=== PATIENT | male | born 1990 | race Caucasian/White ===

== ENCOUNTER 2019-04-13 12:35 | Emergency (ER) | payer OTHER ==
[~2019-04-13] VITALS: Ht 172 cm; Wt 75.0 kg
[2019-04-13] MEDS ORDERED: diphenhydrAMINE 50 MG/ML INJ (BENADRYL) IVP ONE (12:45)
--- NOTE | 2019-04-13 12:46 | ED General ---
General Chief Complaint: Allergic Reaction Stated Complaint: ALLERGIC REACTION Source of Information: Patient Exam Limitations: No Limitations History of Present Illness Date Seen by Provider: Apr 13, 2019 Time Seen by Provider: 12:42 Initial Comments To ER with reports of allergic reaction. He reports diffuse itching and sensation of his throat swelling. This began about 1.5 weeks ago, was attributed to the Paxil he had been on for many years, they thought maybe there was a new dye in the fill computed to the reaction. At that time the Paxil was discontinued, Prozac was started in its place and he was given steroids. She initially had hives and those resolved over the course of the past week. He took his last prednisone today, now feels his heart racing, sweating, sensation of throat tightness, diffuse itching but no hives. Timing/Duration: 1 Week Severity: Moderate Allergies and Home Medications Allergies Coded Allergies: paroxetine (Verified Allergy, Unknown, 04/13/19) Patient Home Medication List Home Medication List Reviewed: Yes Review of Systems Review of Systems Constitutional: see HPI, diaphoresis EENTM: see HPI Respiratory: no symptoms reported Cardiovascular: no symptoms reported Genitourinary: no symptoms reported Musculoskeletal: no symptoms reported Skin: see HPI, pruritus Psychiatric/Neurological: No Symptoms Reported Past Ngjumis-Yaaeqt-Eginru Hx Patient Social History Recent Foreign Travel: No Contact w/Someone Who Travel: No Physical Exam Vital Signs Vital Signs - First Documented 04/13/19 12:40 Temp 36.7 Pulse 92 Resp 18 B/P (MAP) 116/68 (84) Pulse Ox 93 O2 Delivery Room Air Capillary Refill : Height, Weight, BMI Height: '" Weight: lbs. oz. kg; BMI Method:Stated General Appearance: No Apparent Distress, WD/WN, Other (tachycardic at 105, anxious appearing.) Eyes: Bilateral Eye Normal Inspection, Bilateral Eye PERRL, Bilateral Eye EOMI HEENT: PERRL/EOMI, TMs Normal, Other (no visible swelling of the lips tongue or oropharynx) Neck: Full Range of Motion, Normal Inspection Respiratory: No Accessory Muscle Use, No Respiratory Distress Cardiovascular: Regular Rate, Rhythm, Normal Peripheral Pulses Gastrointestinal: Non Tender, Soft Extremity: Normal Capillary Refill, Normal Inspection Neurologic/Psychiatric: Alert, Oriented x3 Skin: Normal Color, Warm/Dry, Other (there are no hives, there is no excoriation of the skin from scratching, there is no erythema of the skin.) Progress/Results/Core Measures Suspected Sepsis SIRS Temperature: Pulse: Respiratory Rate: Laboratory Tests 04/13/19 12:55: White Blood Count 15.5H Blood Pressure / Mean: Laboratory Tests 04/13/19 12:55: Creatinine 1.10, Platelet Count 374, Total Bilirubin 0.7 Results/Orders Lab Results Laboratory Tests Test 04/13/19 12:55 Range/Units White Blood Count 15.5 H 4.3-11.0 10^3/uL Red Blood Count 5.15 4.35-5.85 10^6/uL Hemoglobin 16.3 13.3-17.7 G/DL Hematocrit 47 40-54 % Mean Corpuscular Volume 90 80-99 FL Mean Corpuscular Hemoglobin 32 25-34 PG Mean Corpuscular Hemoglobin Concent 35 32-36 G/DL Red Cell Distribution Width 13.7 10.0-14.5 % Platelet Count 374 130-400 10^3/uL Mean Platelet Volume 9.2 7.4-10.4 FL Neutrophils (%) (Auto) 79 H 42-75 % Lymphocytes (%) (Auto) 15 12-44 % Monocytes (%) (Auto) 5 0-12 % Eosinophils (%) (Auto) 0 0-10 % Basophils (%) (Auto) 0 0-10 % Neutrophils # (Auto) 12.3 H 1.8-7.8 X 10^3 Lymphocytes # (Auto) 2.4 1.0-4.0 X 10^3 Monocytes # (Auto) 0.7 0.0-1.0 X 10^3 Eosinophils # (Auto) 0.0 0.0-0.3 10^3/uL Basophils # (Auto) 0.0 0.0-0.1 10^3/uL Neutrophils % (Manual) 73 % Lymphocytes % (Manual) 21 % Monocytes % (Manual) 5 % Band Neutrophils 1 % Blood Morphology Comment NORMAL Sodium Level 137 135-145 MMOL/L Potassium Level 3.2 L 3.6-5.0 MMOL/L Chloride Level 100 98-107 MMOL/L Carbon Dioxide Level 21 21-32 MMOL/L Anion Gap 16 H 5-14 MMOL/L Blood Urea Nitrogen 17 7-18 MG/DL Creatinine 1.10 0.60-1.30 MG/DL Estimat Glomerular Filtration Rate > 60 BUN/Creatinine Ratio 15 Glucose Level 207 H 70-105 MG/DL Calcium Level 9.6 8.5-10.1 MG/DL Corrected Calcium 9.4 8.5-10.1 MG/DL Total Bilirubin 0.7 0.1-1.0 MG/DL Aspartate Amino Transf (AST/SGOT) 29 5-34 U/L Alanine Aminotransferase (ALT/SGPT) 26 0-55 U/L Alkaline Phosphatase 62 40-136 U/L Total Protein 6.8 6.4-8.2 GM/DL Albumin 4.2 3.2-4.5 GM/DL My Orders Orders - NOLVIA BEARDEN APRN Ed Iv/Invasive Line Start (04/13/19 12:41) Diphenhydramine Injection (Benadryl Inje (04/13/19 12:45) Cbc With Automated Diff (04/13/19 13:12) Comprehensive Metabolic Panel (04/13/19 13:12) Manual Differential (04/13/19 12:55) Lorazepam Injection (Ativan Injection) (04/13/19 13:45) Medications Given in ED Current Medications Medications Dose Ordered Sig/Dariel Route Start Time Stop Time Status Last Admin Dose Admin Diphenhydramine HCl 50 mg ONCE ONCE IVP 04/13/19 12:45 04/13/19 12:46 DC 04/13/19 12:47 50 MG Lorazepam 0.5 mg ONCE PRN IVP 04/13/19 13:45 04/13/19 13:52 0.5 MG Vital Signs/I&O 04/13/19 12:40 Temp 36.7 Pulse 92 Resp 18 B/P (MAP) 116/68 (84) Pulse Ox 93 O2 Delivery Room Air Capillary Refill : Departure Communication (Admissions) I'm not entirely convinced this is an allergic reaction at this point, suspect this may be more related to the sudden cessation of the Paxil/initiation of Prozac. does state that he's had some obvious swelling of his lips intermittently and hives intermittently. She states he eats a lot of meat and has been bitten by several ticks this year, that would be a possibility for alpha-gal allergy to have developed is possible. He otherwise takes no medications. Impression Primary Impression: Pruritus Additional Impression: medication discontinuation symptoms Disposition: HOME, SELF-CARE Condition: Stable Departure-Patient Inst. Decision time for Depature: 14:12 Referrals: NO,LOCAL PHYSICIAN (PCP/Family) Primary Care Physician Patient Instructions: NO INSTRUCTIONS GIVEN Add. Discharge Instructions: . Benadryl every 4-6 hours as needed 2. Steroids as directed 3. All discharge instructions reviewed with patient and/or family. Voiced understanding. Scripts Methylprednisolone (Medrol) 4 Mg Tab.ds.pk 4 MG PO UD for 6 Days, #21 PKG PER DOSE PACK INSTRUCTIONS Prov: NOLVIA BEARDEN APRN 04/13/19 NOLVIA BEARDEN APRN Apr 13, 2019 12:46
[2019-04-13 13:19] LABS: BASOPHILS % (AUTO) 0 % (0-10); EOSINOPHILS % (AUTO) 0 % (0-10); HEMATOCRIT 47 % (40-54); HEMOGLOBIN 16.3 G/DL (13.3-17.7); LYMPHOCYTES # (AUTO) 2.4 X 10^3 (1.0-4.0); LYMPHOCYTES % (AUTO) 15 % (12-44); MEAN CORPUSCULAR HEMOGLOBIN 32 PG (25-34); MEAN CORPUSCULAR HGB CONC 35 G/DL (32-36); MEAN CORPUSCULAR VOLUME 90 FL (80-99); MEAN PLATELET VOLUME 9.2 FL (7.4-10.4); MONOCYTES # (AUTO) 0.7 X 10^3 (0.0-1.0); MONOCYTES % (AUTO) 5 % (0-12); NEUTROPHILS # (AUTO) 12.3 X 10^3 (1.8-7.8); NEUTROPHILS % (AUTO) 79 % (42-75); PLATELET COUNT 374 10^3/uL (130-400); RED CELL DISTRIBUTION WIDTH 13.7 % (10.0-14.5); WHITE BLOOD COUNT 15.5 10^3/uL (4.3-11.0)
[2019-04-13 13:33] LABS: ALANINE AMINOTRANSFERASE 26 U/L (0-55); ALBUMIN 4.2 GM/DL (3.2-4.5); ALKALINE PHOSPHATASE 62 U/L (40-136); BILIRUBIN,TOTAL 0.7 MG/DL (0.1-1.0); BUN/CREATININE RATIO 15; CALCIUM 9.6 MG/DL (8.5-10.1); CARBON DIOXIDE 21 MMOL/L (21-32); CHLORIDE 100 MMOL/L (98-107); GFR ESTIMATED > 60; GLUCOSE 207 MG/DL (70-105); POTASSIUM 3.2 MMOL/L (3.6-5.0); SODIUM 137 MMOL/L (135-145); TOTAL PROTEIN 6.8 GM/DL (6.4-8.2)
[2019-04-13] MEDS ORDERED: LORazepam INJ 2 MG/ML (ATIVAN) VIAL IVP PRN (13:45)
--- NOTE | 2019-04-13 13:50 | NUR ---
pt taken off of oxygen at this time and has maintained an O2 level of 93+%
--- NOTE | 2019-04-13 13:55 | NUR ---
pt placed on 2L per NC at this time d/t oxygen levels dropping below 90%.
--- NOTE | 2019-04-13 14:30 | NUR ---
pt placed on 7L with facemask d/t consistent O2 levels below 90%.
[2019-04-13 14:50] LABS: BAND NEUTROPHILS 1 %; LYMPHOCYTES % (MANUAL) 21 %; MONOCYTES % (MANUAL) 5 %; NEUTROPHILS % (MANUAL) 73 %; RBC MORPH NORMAL
[2019-04-13] MEDS ORDERED: METH4TAB PO (15:59)
[2019-04-13 16:15] VITALS: BP 127/75
== END 2019-04-13 16:17 | disposition home or self-care (01) ==
LOC: EDUNIT# 12:35 → ER 12:36
DX: L29.9 Pruritus, unspecified (principal); Z91.14 Patient's other noncompliance with medication regimen; Z88.8 Allergy status to other drugs, medicaments and biological substances
CPT/HCPCS: 36415; 80053; 85007; 85027

== ENCOUNTER 2021-10-17 23:42 | Emergency (ER) | payer OTHER ==
[~2021-10-17 23:42] MED LIST: METH4TAB PO
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
[2021-10-18 00:06] LABS: BASOPHILS # (AUTO) 0.1 10^3/uL (0.0-0.1); BASOPHILS % (AUTO) 1 % (0-10); EOSINOPHILS # (AUTO) 0.2 10^3/uL (0.0-0.3); EOSINOPHILS % (AUTO) 3 % (0-10); HEMATOCRIT 44 % (40-54); HEMOGLOBIN 15.1 g/dL (13.3-17.7); LYMPHOCYTES # (AUTO) 4.2 10^3/uL (1.0-4.0); LYMPHOCYTES % (AUTO) 43 % (12-44); MEAN CORPUSCULAR HEMOGLOBIN 31 pg (25-34); MEAN CORPUSCULAR HGB CONC 35 g/dL (32-36); MEAN CORPUSCULAR VOLUME 91 fL (80-99); MEAN PLATELET VOLUME 9.7 fL (9.0-12.2); MONOCYTES # (AUTO) 0.6 10^3/uL (0.0-1.0); MONOCYTES % (AUTO) 6 % (0-12); NEUTROPHILS # (AUTO) 4.5 10^3/uL (1.8-7.8); NEUTROPHILS % (AUTO) 47 % (42-75); PLATELET COUNT 288 10^3/uL (130-400); WHITE BLOOD COUNT 9.6 10^3/uL (4.3-11.0)
[2021-10-18 00:20] LABS: ALBUMIN 4.5 GM/DL (3.2-4.5); CHLORIDE 104 MMOL/L (98-107); SODIUM 137 MMOL/L (135-145)
[2021-10-18 00:21] LABS: CALCIUM 9.5 MG/DL (8.5-10.1)
[2021-10-18 00:22] LABS: GLUCOSE 149 MG/DL (70-105)
[2021-10-18 00:23] LABS: CARBON DIOXIDE 19 MMOL/L (21-32)
[2021-10-18 00:24] LABS: BILIRUBIN,TOTAL 0.6 MG/DL (0.1-1.0)
[2021-10-18 00:26] LABS: ALKALINE PHOSPHATASE 76 U/L (40-136); CREATININE SERUM 0.92 MG/DL (0.60-1.30); GFR ESTIMATED 115
[2021-10-18 00:27] LABS: BUN/CREATININE RATIO 10
[2021-10-18 00:28] LABS: MAGNESIUM 1.9 MG/DL (1.6-2.4)
[2021-10-18 00:29] LABS: ALANINE AMINOTRANSFERASE 18 U/L (0-55)
[2021-10-18 00:44] LABS: BILIRUBIN,URINE NEGATIVE (NEGATIVE); CLARITY,URINE CLEAR; COLOR,URINE YELLOW; GLUCOSE, URINE (UA) NEGATIVE (NEGATIVE); KETONES,URINE NEGATIVE (NEGATIVE); LEUKOCYTE ESTERASE ,URINE NEGATIVE (NEGATIVE); NITRITE,URINE NEGATIVE (NEGATIVE); PROTEIN,URINE NEGATIVE (NEGATIVE)
[2021-10-18 00:49] LABS: TSH (THYROID ANALYZER) 5.11 UIU/ML (0.35-4.94)
[2021-10-18 00:52] LABS: BACTERIA,URINE NEGATIVE /HPF; SQUAMOUS EPITHELIAL CELL,UR RARE /HPF
[2021-10-18 01:00] LABS: AMPHETAMINE SCREEN, URINE NEGATIVE (NEGATIVE); BARBITURATE SCREEN URINE NEGATIVE (NEGATIVE); BENZODIAZEPINES SCREEN URINE NEGATIVE (NEGATIVE); CANNABINOID SCREEN, URINE POSITIVE (NEGATIVE); COCAINE SCREEN URINE NEGATIVE (NEGATIVE); METHADONE STAT NEGATIVE (NEGATIVE); METHAMPHETAMINE SCREEN URINE S NEGATIVE (NEGATIVE); OPIATE SCREEN URINE NEGATIVE (NEGATIVE); OXYCODONE STAT NEGATIVE (NEGATIVE); PROPOXYPHENE STAT NEGATIVE (NEGATIVE); TRICYCLIC ANTIDEPRESSANTS SCRE NEGATIVE (NEGATIVE)
[2021-10-18] MEDS ORDERED: KCL 10 MEQ TAB (MICRO K) PO ONE ×2 (01:15→01:20)
[2021-10-18 01:31] VITALS: BP 117/72
--- NOTE | 2021-10-18 05:40 | Diagnostic Imaging Report ---
INDICATION: PALPITATIONS COMPARISON: 10/17/2010 FINDINGS: Single frontal view of the chest demonstrates normal heart size and pulmonary vascularity. The lungs are well aerated and clear. No large pleural effusion or pneumothorax is seen. The visualized osseous structures show no acute abnormalities. IMPRESSION: 1. No acute cardiopulmonary process. Dictated by: Dictated on workstation # [id number]
== END 2021-10-18 01:34 | disposition home or self-care (01) ==
LOC: EDUNIT# 23:42 → ER 23:44
DX: R00.2 Palpitations (principal); E87.6 Hypokalemia; F17.210 Nicotine dependence, cigarettes, uncomplicated; Z20.822 Contact with and (suspected) exposure to COVID-19
CPT/HCPCS: 36415; 71045; 80053; 80306; 80320; 81000; 83735; 83880; 84439; 84443; 84484; 85025; 85379; 87636; 93005; 93041

== ENCOUNTER 2022-01-13 14:38 | Emergency (ER) | payer OTHER ==
[2022-01-13] MEDS ORDERED: fentaNYL INJ 100 MCG/2 ML AMP IVP STA ×2 (14:52→15:08)
[2022-01-13] MEDS ORDERED: NS IV 1000 ML 1,000 ML IV STA (14:53)
[2022-01-13] MEDS ORDERED: TETANUS,DIPTH,PERTUSS P/F (BOOSTRIX) 0.5 ML VIAL IM ONE (15:00)
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
[2022-01-13 15:10] LABS: BASOPHILS % (AUTO) 0 % (0-10); EOSINOPHILS # (AUTO) 0.1 10^3/uL (0.0-0.3); EOSINOPHILS % (AUTO) 1 % (0-10); HEMATOCRIT 47 % (40-54); LYMPHOCYTES # (AUTO) 2.1 10^3/uL (1.0-4.0); LYMPHOCYTES % (AUTO) 18 % (12-44); MEAN CORPUSCULAR HEMOGLOBIN 32 pg (25-34); MEAN CORPUSCULAR HGB CONC 34 g/dL (32-36); MEAN CORPUSCULAR VOLUME 93 fL (80-99); MEAN PLATELET VOLUME 9.3 fL (9.0-12.2); MONOCYTES # (AUTO) 0.6 10^3/uL (0.0-1.0); MONOCYTES % (AUTO) 5 % (0-12); NEUTROPHILS # (AUTO) 8.8 10^3/uL (1.8-7.8); NEUTROPHILS % (AUTO) 76 % (42-75); PLATELET COUNT 354 10^3/uL (130-400); WHITE BLOOD COUNT 11.6 10^3/uL (4.3-11.0)
[2022-01-13] MEDS ORDERED: FLUORESCEIN (FLUOR-I-STRIPS) 1 MG STRP OP ONE (15:15)
[2022-01-13] MEDS ORDERED: TETRACAINE 0.5% OPHTH SOLN 4 ML BTL (SINGLE DOSE ONLY) OP ONE (15:15)
[2022-01-13 15:19] LABS: ALBUMIN 4.8 GM/DL (3.2-4.5)
[2022-01-13 15:20] LABS: CHLORIDE 104 MMOL/L (98-107); SODIUM 140 MMOL/L (135-145)
[2022-01-13 15:21] LABS: CALCIUM 9.4 MG/DL (8.5-10.1)
[2022-01-13 15:22] LABS: GLUCOSE 111 MG/DL (70-105); TOTAL PROTEIN 7.8 GM/DL (6.4-8.2)
[2022-01-13 15:23] LABS: CARBON DIOXIDE 22 MMOL/L (21-32)
[2022-01-13 15:24] LABS: BILIRUBIN,TOTAL 0.4 MG/DL (0.1-1.0)
[2022-01-13 15:25] LABS: ALKALINE PHOSPHATASE 72 U/L (40-136)
[2022-01-13 15:26] LABS: CREATININE SERUM 0.87 MG/DL (0.60-1.30); GFR ESTIMATED 119
[2022-01-13 15:27] LABS: BUN/CREATININE RATIO 7
[2022-01-13 15:29] LABS: ALANINE AMINOTRANSFERASE 22 U/L (0-55)
[2022-01-13] MEDS ORDERED: ACHD5005 PO (16:29)
[2022-01-13 16:50] VITALS: BP 123/81
== END 2022-01-13 16:52 | disposition home or self-care (01) ==
LOC: EDUNIT# 14:38 → ER 14:40
DX: T20.29XA Burn of second degree of multiple sites of head, face, and neck, initial encounter (principal); T21.21XA Burn of second degree of chest wall, initial encounter; T23.271A Burn of second degree of right wrist, initial encounter; W38.XXXA Explosion and rupture of other specified pressurized devices, initial encounter; X12.XXXA Contact with other hot fluids, initial encounter
CPT/HCPCS: 36415; 80053; 85025; 90715

== ENCOUNTER 2022-08-30 13:04 | Emergency (ER) | payer OTHER ==
[~2022-08-30] VITALS: Ht 173 cm; Wt 80.0 kg
[~2022-08-30 13:04] MED LIST changes: +ACHD5005 PO
--- NOTE | 2022-08-30 13:31 | ED Cough/URI ---
General Chief Complaint: COVID19 Suspect/Confirmed Stated Complaint: COVID TEST | CHEST CONGESTION Nursing Triage Note: PT AMB TO ED BY POV WITH C/O COUGH, CONGESTION, ACHINESS, AND WEAKNESS X 4-5 DAYS. DENIES BEING SOB, BUT REPORTS HE FEELS LIKE HE CAN'T TAKE A FULL BREATH. HAD SOME VOMITING YESTERDAY. Source: patient Exam Limitations: no limitations History of Present Illness Date Seen by Provider: Aug 30, 2022 Time Seen by Provider: 13:06 Initial Comments 32-year-old male presents to the ER with complaints of URI symptoms for the last 4 to 5 days. Reports runny nose, chest congestion, muscle aches, cough with greenish colored phlegm, some shortness of air with exertion. Reports couple episodes of vomiting yesterday, denies nausea now. Denies fevers/chills, chest pain, abdominal pain, diarrhea. States past medical history includes PTSD, takes trazodone and another medication that he did not know the name. Allergies and Home Medications Allergies Coded Allergies: No Known Drug Allergies (Unverified , 01/13/22) Patient Home Medication List Home Medication List Reviewed: Yes Hydrocodone/Acetaminophen (Hydrocodone-Acetamin 5-325 mg) 5 Mg-325 Mg Tablet, 1 TAB PO Q4H PRN for PAIN-MODERATE (5-7) Prescribed by: PRIMITIVO SCHAFFER on 01/13/22 1629 Methylprednisolone (Medrol) 4 Mg Tab.ds.pk, 4 MG PO UD Prescribed by: NOLVIA BEARDEN on 04/13/19 1559 Review of Systems Review of Systems Constitutional: see HPI Past Qtyoltk-Ypgqlm-Aujcul Hx Patient Social History Tobacco Use?: Yes Tobacco type used: Cigarettes Smoking Status: Current Everyday Smoker Use of E-Cig and/or Vaping dev: No Substance use?: Yes Substance type: Marijuana Substance frequency: Daily Alcohol Use?: No Pt feels they are or have been: No Immunizations Up To Date Influenza Vaccine Up-to-Date: No; Not Current Seasonal Allergies Seasonal Allergies: No Past Medical History Surgery/Hospitalization HX: PTSD Surgeries: No Respiratory: No Cardiac: Yes Palpitations Neurological: No Genitourinary: No Gastrointestinal: No Musculoskeletal: No Endocrine: No HEENT: No Cancer: No Psychosocial: Yes (HUNG HIMSELF IN 2019. DOES NOT TAKE ANY PSYCH MEDS OR SEE PSYCHIATRIST) Anxiety, PTSD, Suicide Attempts, Depression Integumentary: No Family Medical History SOCIAL HISTORY: -SMOKES 2 PPD -ETOH--DRANK 30 PACK/DAY OF BEER PLUS 1/5 OF VODKA EVERY DAY--"QUIT" IN 2020--STILL "OCCASIONALLY" DRINKS -DRUGS--THC ON REGULAR BASIS. DRINKS LARGE AMOUNTS OF CAFFEINE DAILY--[address] PEPPER, PLUS "A COUPLE OF MONSTER DRINKS" EVERY DAY. Physical Exam Vital Signs - First Documented Capillary Refill : Less Than 3 Seconds Height: '" Weight: lbs. oz. kg; 26.00 BMI Method:Stated General Appearance: WD/WN, no apparent distress Neck: supple, normal inspection Respiratory: lungs clear, normal breath sounds, no respiratory distress, no accessory muscle use Cardiovascular: regular rate, rhythm, no edema, no gallop, no JVD, no murmur Extremities: normal range of motion, normal inspection Neurologic/Psychiatric: alert, normal mood/affect, oriented x 3 Skin: normal color, warm/dry Progress/Results/Core Measures Suspected Sepsis SIRS Temperature: Pulse: 84 Respiratory Rate: 18 Blood Pressure 123 /78 Mean: 93 Results/Orders Lab Results Laboratory Tests Test 08/30/22 13:17 Range/Units Influenza Type A (RT-PCR) Not Detected Not Detecte Influenza Type B (RT-PCR) Not Detected Not Detecte SARS-CoV-2 RNA (RT-PCR) Not Detected Not Detecte My Orders Orders - JEREMY HILL APRN Covid 19 Inhouse Test (08/30/22 13:05) Influenza A And B By Pcr (08/30/22 13:05) Vital Signs/I&O 08/30/22 08/30/22 08/30/22 13:10 13:10 14:05 Temp 36.4 Pulse 84 78 Resp 18 16 B/P (MAP) 123/78 (93) 120/67 Pulse Ox 96 96 O2 Delivery Room Air Room Air Room Air Capillary Refill : Less Than 3 Seconds Blood Pressure Mean: 93 Progress Note #1: Time: 13:29 Progress Note Patient seen and evaluated, sitting comfortably on the bed, no acute distress. Based on exam and symptoms, differential diagnoses include but are not limited to, influenza, COVID, URI. COVID and flu swabs ordered. Considered chest x- ray, but lung sounds clear, patient in no respiratory distress. Progress Note #2: Time: 13:58 Progress Note COVID and flu test negative. Discussed results with patient. Patient given discharge instructions and return precautions. Departure Impression Primary Impression: URI (upper respiratory infection) Disposition: 01 HOME, SELF-CARE Condition: Stable Departure-Patient Inst. Decision time for Depature: 13:59 Referrals: NO,LOCAL PHYSICIAN (PCP/Family) Primary Care Physician Patient Instructions: Upper Respiratory Infection ED Add. Discharge Instructions: Urine negative for flu and COVID, this is likely an upper respiratory virus. Take Tylenol and ibuprofen as needed for pain and fever. You may take dylr-[id number] cold and flu medications. These medications contain Tylenol, so do not add any additional Tylenol if you take this medication. You may take vitamin D and zinc to help your immune system. Use a humidifier with distilled water at bedside to help with nasal congestion. Drink plenty of water, stay away from caffeinated and high sugar beverages. Return if you experience worsening cough, fever uncontrolled by Tylenol or ibuprofen, recurrent vomiting, chest pain, increased shortness of breath, or any other new, concerning, or worsening symptoms. Follow-up with your primary care provider. All discharge instructions reviewed with patient and/or family. Voiced understanding. JEREMY HILL APRN Aug 30, 2022 13:31
[2022-08-30 14:05] VITALS: BP 120/67
== END 2022-08-30 14:05 | disposition home or self-care (01) ==
LOC: EDUNIT# 13:04 → ER 13:05
DX: J06.9 Acute upper respiratory infection, unspecified (principal); F17.210 Nicotine dependence, cigarettes, uncomplicated; F43.10 Post-traumatic stress disorder, unspecified; Z79.899 Other long term (current) drug therapy; Z28.310 Unvaccinated for COVID-19; Z20.822 Contact with and (suspected) exposure to COVID-19
CPT/HCPCS: 87636; 99283

== ENCOUNTER 2022-11-27 14:46 | Emergency (ER) | payer OTHER ==
[~2022-11-27] VITALS: Ht 172 cm; Wt 74.0 kg
--- NOTE | 2022-11-27 15:54 | ED Upper Extremity ---
General Chief Complaint: Upper Extremity Stated Complaint: LEFT SHOULDER PAIN Nursing Triage Note: LEFT SHOULDER PAIN STARTED APPX 1 WEEK AGO AFTER JUMPING OFF [employer]. STATES HE HAS BEEN TAKING LEFT OVER HYDRO'S WHICH IS NOT HELPING. REPORTS IT IS INFLAMED AND FEELS HOT. Source: patient Exam Limitations: no limitations History of Present Illness Date Seen by Provider: Nov 27, 2022 Time Seen by Provider: 15:43 Allergies and Home Medications Allergies Coded Allergies: No Known Drug Allergies (Unverified , 01/13/22) Patient Home Medication List Hydrocodone/Acetaminophen (Hydrocodone-Acetamin 5-325 mg) 5 Mg-325 Mg Tablet, 1 TAB PO Q4H PRN for PAIN-MODERATE (5-7) Prescribed by: PRIMITIVO SCHAFFER on 01/13/22 1629 Methylprednisolone (Medrol) 4 Mg Tab.ds.pk, 4 MG PO UD Prescribed by: NOLVIA BEARDEN on 04/13/19 1559 Past Iywijwi-Raglpx-Gywkjw Hx Patient Social History Tobacco Use?: Yes Tobacco type used: Cigarettes Smoking Status: Current Everyday Smoker Substance use?: Yes Substance type: Marijuana Alcohol Use?: No Seasonal Allergies Seasonal Allergies: No Past Medical History Surgery/Hospitalization HX: PTSD Surgeries: No Respiratory: No Cardiac: Yes Palpitations Neurological: No Genitourinary: No Gastrointestinal: No Musculoskeletal: No Endocrine: No HEENT: No Cancer: No Psychosocial: Yes (HUNG HIMSELF IN 2019. DOES NOT TAKE ANY PSYCH MEDS OR SEE PSYCHIATRIST) Anxiety, PTSD, Suicide Attempts, Depression Integumentary: No Family Medical History SOCIAL HISTORY: -SMOKES 2 PPD -ETOH--DRANK 30 PACK/DAY OF BEER PLUS 1/5 OF VODKA EVERY DAY--"QUIT" IN 2020--STILL "OCCASIONALLY" DRINKS -DRUGS--THC ON REGULAR BASIS. DRINKS LARGE AMOUNTS OF CAFFEINE DAILY--[address] LERNER, PLUS "A COUPLE OF MONSTER DRINKS" EVERY DAY. Physical Exam Vital Signs Vital Signs - First Documented 11/27/22 15:00 Temp 36.4 Pulse 68 Resp 16 B/P (MAP) 148/81 (103) Pulse Ox 97 O2 Delivery Room Air Capillary Refill : Less Than 3 Seconds Height, Weight, BMI Height: '" Weight: lbs. oz. kg; 25.00 BMI Method:Stated Progress/Results/Core Measures Results/Orders My Orders Orders - BRUEGGEMANN,ANNA T MD Shoulder, Left, 3 Views (11/27/22 15:50) Vital Signs/I&O 11/27/22 15:00 Temp 36.4 Pulse 68 Resp 16 B/P (MAP) 148/81 (103) Pulse Ox 97 O2 Delivery Room Air Blood Pressure Mean: 103 Departure Impression Primary Impression: Injury of left shoulder Qualified Codes: S49.92XA - Unspecified injury of left shoulder and upper arm, initial encounter Disposition: HOME, SELF-CARE Condition: Improved Departure-Patient Inst. Decision time for Depature: 16:49 Referrals: NO,LOCAL PHYSICIAN (PCP/Family) Primary Care Physician Patient Instructions: Rotator Cuff Injury, Shoulder Pain ED Add. Discharge Instructions: There were no injuries to your shoulder bones visualized on x-ray. You likely h ave a soft tissue injury in your shoulder, possibly a rotator cuff injury. Use ibuprofen up to 600 mg every 6 hours as needed for primary pain control. Add Tylenol (acetaminophen) up to 1000 mg every 6 hours as needed for additional pain control. Use the sling as needed for comfort. Avoid prolonged periods of time using the sling as this may lead to muscle atrophy and stiffness of the joint. Exercise gentle range of motion of your shoulder frequently to prevent stiffness. This may be done passively with the assistance of another person. If you are not experiencing any relief after several doses of anti-inflammatory medications such as ibuprofen, consider starting a the steroids as prescribed. Take prednisone steroids early in the day to avoid sleep disturbance and take with food or milk to avoid upset stomach. Follow-up with a primary care provider or orthopedic provider soon as possible. You may need a specialty orthopedic exam and/or additional imaging such as MRI to diagnose the problem. All discharge instructions reviewed with patient and/or family. Voiced understanding. Scripts Prednisone (Prednisone) 20 Mg Tab 20 MG PO DAILY, #4 TAB 0 Refills Prov: ANNA FAGAN MD 11/27/22 Cyclobenzaprine HCl (Cyclobenzaprine HCl) 10 Mg Tablet 10 MG PO HS PRN for PAIN, #10 TAB For tense muscles at bed time. Prov: ANNA FAGAN MD 11/27/22 ANNA FAGAN MD Nov 27, 2022 15:54
--- NOTE | 2022-11-27 16:17 | Diagnostic Imaging Report ---
EXAMINATION: Left shoulder radiographs. EXAM DATE: 11/27/2022 4:10 PM COMPARISON: None available. HISTORY: Shoulder pain. TECHNIQUE: 3 views. FINDINGS: There is no acute fracture, dislocation or destructive osseous process. The joint spaces are normal. The soft tissues are normal. IMPRESSION: No acute osseous abnormality. Dictated by: Dictated on workstation # [id number]
[2022-11-27] MEDS ORDERED: CYCL10TA25 PO (16:57)
[2022-11-27] MEDS ORDERED: PRD20T PO (16:57)
[2022-11-27] MEDS ORDERED: KETOROLAC 30 MG/ML VIAL IM ONE (17:00)
[2022-11-27 17:19] VITALS: BP 140/72
== END 2022-11-27 17:19 | disposition home or self-care (01) ==
LOC: EDUNIT# 14:46 → ER 14:49
DX: S49.92XA Unspecified injury of left shoulder and upper arm, initial encounter (principal); F17.210 Nicotine dependence, cigarettes, uncomplicated; X58.XXXA Exposure to other specified factors, initial encounter; Y93.39 Activity, other involving climbing, rappelling and jumping off
CPT/HCPCS: 73030